=== PATIENT | female | born 1985 | race Caucasian/White ===

== ENCOUNTER → 2020-06-21 | Day surgery (SDC) | payer OTHER ==
[~2020-06-21] MED LIST: ACETAMINOPHEN500 M1 PO; AMPHETAMINE SAL30 MG PO; AUGMENTIN 875-1 EACH PO; COLACE100 MG PO; KETOROLAC TROME10 MG PO; LEXAPRO20 MG PO; MOTRIN600 MG PO; OXY-IR 5MG5 MG PO; PRESTIQ PO
[2020-06-21 09:51] LABS: ALBUMIN 3.7 g/dL (3.4-5.0); BILIRUBIN - DIRECT 0.1 mg/dL (0.00-0.20); BILIRUBIN - TOTAL 0.2 mg/dL (0.2-1.0); GLOBULIN (CALCULATION) 3.1 g/dL; TOTAL PROTEIN 6.8 g/dL (6.4-8.2)
== END | disposition home or self-care (01) ==
LOC: FAS 07:59
PROVIDERS: Student in an Organized Health Care Education/Training Program
DX: K81.1 Chronic cholecystitis (principal); K21.9 Gastro-esophageal reflux disease without esophagitis; F32.9 Major depressive disorder, single episode, unspecified; F41.9 Anxiety disorder, unspecified; K59.09 Other constipation; K58.9 Irritable bowel syndrome, unspecified
CPT/HCPCS: 36415; 80076; J1100; J1644; J1885; J2250; J2405; J2704; J2710; J3010; J7120; Q9967